=== PATIENT | female | born 1945 | race Caucasian/White ===

== ENCOUNTER 2023-01-25 18:13 | Emergency (ER) | payer MEDICARE, OTHER ==
[~2023-01-25] VITALS: Ht 157.5 cm; Wt 60.4 kg
[2023-01-25] MEDS ORDERED: IBUP80TA PO (23:22)
[2023-01-26] MEDS ORDERED: traMADol 50 MG TAB PO ONE (00:20)
[2023-01-26] MEDS ORDERED: TRAM50TA2 PO (01:18)
[2023-01-26 01:26] VITALS: BP 156/77; TEMP 97.4; O2SAT 96
== END 2023-01-26 01:30 | disposition home or self-care (01) ==
LOC: M ED 18:13
DX: S32.010A Wedge compression fracture of first lumbar vertebra, initial encounter for closed fracture (principal); X50.0XXA Overexertion from strenuous movement or load, initial encounter; Y92.009 Unspecified place in unspecified non-institutional (private) residence as the place of occurrence of the external cause

== ENCOUNTER → 2023-02-05 | Outpatient (CLI) | payer MEDICARE, OTHER ==
[~2023-02-05] MED LIST: IBUP80TA PO; TRAM50TA2 PO
== END ==
LOC: M SOG 08:04
PROVIDERS: ATTEND Orthopaedic Surgery
DX: M54.50 Low back pain, unspecified (principal)

== ENCOUNTER → 2023-03-24 | Outpatient (CLI) | payer MEDICARE, OTHER | LOC: M SOG 10:57 | PROVIDERS: ATTEND Orthopaedic Surgery | DX: M48.50XA Collapsed vertebra, not elsewhere classified, site unspecified, initial encounter for fracture (principal); M47.817 Spondylosis without myelopathy or radiculopathy, lumbosacral region ==